=== PATIENT | female | born 1995 | race Two or more races ===

== ENCOUNTER 2017-12-29 21:12 | Emergency (ER) | payer OTHER, MEDICAID ==
[2017-12-29 21:44] VITALS: BP 131/77
[2017-12-30] MEDS ORDERED: ACETAMINOPHEN 325 MG TABLET PO ONE (02:20)
[2017-12-30] MEDS ORDERED: KETOROLAC TROMETHAMINE 60 MG/2 ML SDV IM ONE (02:20)
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
== END 2017-12-30 03:32 | disposition home or self-care (01) ==
LOC: ER 21:12
DX: M54.5 Low back pain (principal); M54.2 Cervicalgia; M54.6 Pain in thoracic spine; V87.7XXA Person injured in collision between other specified motor vehicles (traffic), initial encounter
CPT/HCPCS: 99283; 96372; J1885